=== PATIENT | female | born 1985 | race Caucasian/White ===

== ENCOUNTER 2022-08-28 07:58 | Outpatient (CLI) | payer BC, SELFPAY ==
--- NOTE | 2022-08-28 08:45 | CRLHL7_ITS ---
For Patients: As a result of the Century Cures Act, medical imaging exams and procedure reports are released immediately into your electronic medical record. You may view this report before your referring provider. If you have questions, please contact your health care provider. BILATERAL DIAGNOSTIC MAMMOGRAM WITH COMPUTER-AIDED DETECTION AND TOMOSYNTHESIS LEFT BREAST ULTRASOUND INDICATION: 37-year-old female. Palpable lump inferior LEFT breast. TECHNIQUE: CC and MLO views were obtained. This digital study was evaluated with the assistance of computer-aided detection. Digital breast tomosynthesis utilized in interpretation. COMPARISON: None. This is the patient`s baseline mammogram. FINDINGS: Breast composition: The breasts are extremely dense, which lowers the sensitivity of mammography No suspicious microcalcifications or regions are architectural distortion. There is a questionable oval-shaped lesion inferior LEFT breast near the expected palpable abnormality. Ultrasound is recommended for further characterization. IMPRESSION: 1. Questionable nodule inferior LEFT breast seen only on the MLO view. 2. Negative RIGHT breast. TECHNIQUE: Directed RIGHT breast ultrasound with this radiologist present. In the inferior LEFT breast at the 7 o`clock position of the LEFT nipple 2 cm from the nipple is a well-circumscribed oval-shaped solid mass with subtle blood flow measuring 1.6 x 0.7 x 1.1 cm. The appearance is most compatible with a benign fibroadenoma. However ultrasound-guided biopsy, clip placement, and a post-clip mammogram are recommended. These findings were discussed in detail with the patient. She agrees to this course of action. IMPRESSION: 1. Solid mass inferior LEFT breast at the 7 o`clock position measuring 1.6 x 0.7 x 1.1 cm. 2. Biopsy is recommended. BI-RADS Category 4: Suspicious A lay language report of this examination will be provided to the patient. Dictated by: Todd Velazco MD @08/28/2022 10:01:31 AM/jose JOHN/Dictated by: Todd Velazco MD @ 08/28/2022 10:00:00 AM (Electronically Signed)
--- NOTE | 2022-08-28 09:15 | CRLHL7_ITS ---
For Patients: As a result of the Cures Act, medical imaging exams and procedure reports are released immediately into your electronic medical record. You may view this report before your referring provider. If you have questions, please contact your health care provider. PLEASE SEE BILATERAL DIAGNOSTIC MAMMOGRAM OF SAME DAY. CRL:jose LOPEZ/Dictated by: Todd Velazco MD @ 08/28/2022 10:01:00 AM (Electronically Signed)
== END 2022-08-28 07:59 | disposition home or self-care (01) ==
PROVIDERS: PCP Physician Assistant Medical; Visit Provider Registered Nurse
DX: N63.24 Unspecified lump in the left breast, lower inner quadrant (principal)
CPT/HCPCS: 76642; 77066; G0279

== ENCOUNTER 2022-09-04 07:56 | Outpatient (CLI) | payer BC, SELFPAY ==
--- NOTE | 2022-09-04 08:15 | CRLHL7_ITS ---
For Patients: As a result of the Century Cures Act, medical imaging exams and procedure reports are released immediately into your electronic medical record. You may view this report before your referring provider. If you have questions, please contact your health care provider. ULTRASOUND-GUIDED BREAST BIOPSY AND CLIP PLACEMENT CLINICAL HISTORY: Indeterminate palpable nodule. COMPARISON STUDIES: 08/28/2022. TECHNIQUE: Real-time ultrasound with image documentation was used for targeting the breast lesion. Core biopsy specimens were obtained using an automated gun with an 18-gauge biopsy needle. CONSENT and TIME OUT: The procedure, risks, and alternatives were explained to the patient and a consent was signed. [place] Protocol was followed including pre-procedure verification that relevant information/documentation was available, reviewed and properly matched to the patient; consent accurate and complete; and equipment and supplies available. Time Out was conducted just prior to starting procedure to verify the four required elements: patient identity, correct side/site marked (if applicable), procedure, relevant images/results properly labeled and displayed (if applicable). PROCEDURE: The patient was positioned supine on the ultrasound table. The breast was prepped with ChloraPrep. 6 cc of 1 percent lidocaine used for local anesthesia. Core samples were obtained. The specimens were placed in 10% formalin and sent to the pathology department. Pressure was held on the biopsy site until all bleeding subsided. The skin incision was closed with Steri-Strips. An ice pack was positioned over the biopsy site. Post-biopsy instructions were reviewed with the patient, and a written copy was given to her. LATERALITY: LEFT. LESION: Hypoechoic solid nodule measuring 16 x 7 x 11 millimeters at 7 o`clock 2 cm from the nipple. SUSPICION FOR MALIGNANCY: Low. NUMBER OF SAMPLES: 5. BIOPSY CLIP SHAPE: Oval. PROXIMITY OF CLIP TO TARGET: Within the lesion. IMPRESSION: Ultrasound-guided breast biopsy. When the pathology report is available, an addendum to this report will be made. No clip placed per patient request. ACR not applicable Dictated by Juanito Carrington MD @ 09/04/2022 10:01:32 AM arcadio/Dictated by: Juanito Carrington MD @ 09/04/2022 10:01:00 AM ADDENDUM: Pathology consistent with benign fibroadenoma. This is concordant. Age- appropriate screening mammography recommended. Dictated by: Juanito Carrington MD @09/08/2022 11:39:24 AM / CRL:arcadio (Electronically Signed)
== END 2022-09-04 07:57 | disposition home or self-care (01) ==
LOC: US 07:56
PROVIDERS: PCP Physician Assistant Medical; Visit Provider Registered Nurse
DX: N63.20 Unspecified lump in the left breast, unspecified quadrant (principal); D24.2 Benign neoplasm of left breast; R92.8 Other abnormal and inconclusive findings on diagnostic imaging of breast
CPT/HCPCS: 19083; 88305; A4648; A4649

== ENCOUNTER 2024-04-14 12:58 | Outpatient (CLI) | payer OTHER, BC, SELFPAY ==
--- NOTE | 2024-04-14 13:20 | CRLHL7_ITS ---
For Patients: As a result of the Century Cures Act, medical imaging exams and procedure reports are released immediately into your electronic medical record. You may view this report before your referring provider. If you have questions, please contact your health care provider. BILATERAL SCREENING MAMMOGRAM WITH COMPUTER-AIDED DETECTION AND TOMOSYNTHESIS TECHNIQUE: CC and MLO views were obtained. These mammographic images have been obtained using full-field digital technique. These mammographic images were interpreted with the benefit of computer-aided detection. Breast Tomosynthesis was used in this interpretation. COMPARISON FILM: 08/28/22. FINDINGS: The breasts are extremely dense, which lowers the sensitivity of mammography. IMPRESSION: There is no radiographic evidence for malignancy. ASSESSMENT: BI-RADS Category 2: Benign RECOMMENDATION: Routine screening mammogram in 1 year. A lay language report of this examination will be provided to the patient. Juanito Carrington M.D. Diagnostic Radiologist [email or web address] SP/Dictated by: Juanito Carrington MD @ 04/17/2024 9:04:00 AM (Electronically Signed)
== END 2024-04-14 12:59 | disposition home or self-care (01) ==
LOC: MAMMO 12:59
PROVIDERS: Visit Provider Nurse Practitioner
DX: Z12.31 Encounter for screening mammogram for malignant neoplasm of breast (principal); R92.343 Mammographic extreme density, bilateral breasts
CPT/HCPCS: 77063; 77067